=== PATIENT | female | born 1930 | race Caucasian/White ===

== ENCOUNTER 2017-09-12 10:33 | Outpatient (CLI) | payer MEDICARE, OTHER ==
--- NOTE | 2017-09-12 12:33 | RAD ---
TWO VIEWS CHEST: Comparison: 03-26-16 History: Cough for five days. FINDINGS: Two views chest shows a normal sized cardiomediastinal silhouette. Increased interstitial markings ar e present. There is no evidence of consolidation, mass, or pleural effusion. There are multiple remot e left rib fractures. IMPRESSION: No evidence of acute cardiopulmonary disease. POS: [facility]
== END 2017-09-12 10:34 | disposition home or self-care (01) ==
LOC: SCSRAD 10:33
PROVIDERS: ATTEND Nurse Practitioner Family
DX: J40 Bronchitis, not specified as acute or chronic (principal)
CPT/HCPCS: 71046

== ENCOUNTER 2018-04-14 12:19 | Outpatient (CLI) | payer MEDICARE, OTHER ==
[2018-04-14 13:53] LABS: #Eosinphils 0.1 thou/uL (0.0-0.7); #Lymphocytes 1.9 thou/uL (1.20-3.40); #Monocytes 0.7 thou/uL (0.11-0.59); #Neutrophils 3.4 thou/uL (1.40-6.50); %Basophils 0.8 % (0.0-1.0); %Eosinophils 1.9 % (0.0-10.0); %Lymphocytes 30.7 % (21.0-51.0); %Monocytes 10.7 % (0.0-10.0); %Neutrophils 55.9 % (42.0-75.0); Hemoglobin 11.9 g/dL (12.0-16.0); Mean Corpuscular HGB CONC 31.6 g/dL (32.0-36.0); Mean Corpuscular Hemoglobin 25.2 pg (27.0-31.0); Mean Corpuscular Volume 79.7 fL (78.0-98.0); Mean Platelet Volume 9.5 fL (7.4-10.4); Platelet Count 252 thou/uL (130-400); RBC Distribution Width 14.3 % (11.5-14.5); Red Blood Cell (RBC) Count 4.73 mill/uL (4.20-5.40)
--- NOTE | 2018-04-14 14:58 | RAD ---
CHEST TWO VIEWS: CLINICAL HISTORY: Preoperative evaluation. COMPARISON: 09/12/2017 FINDINGS: There is stable prominence of the central pulmonary arteries bilaterally. The lungs are hyperinflate d with interstitial prominence. No new consolidation or effusion. The cardiac silhouette is mildly prominent, stable. Vascular calcification remains. IMPRESSION: 1. Chronic obstructive pulmonary disease. 2. No focal consolidation. POS: [facility]
--- NOTE | 2018-04-14 19:08 | EKG ---
Test Reason : Blood Pressure : / mmHG Vent. Rate : 071 BPM Atrial Rate : 071 BPM P-R Int : 158 ms QRS Dur : 088 ms QT Int : 400 ms P-R-T Axes : 049 -01 071 degrees QTc Int : 434 ms Normal sinus rhythm Possible Anterior infarct , age undetermined Abnormal ECG When compared with ECG of 26-MAR-2016 16:50, No significant change was found Confirmed by James PENA ([id number]) on 04/14/2018 7:07:58 PM Referred By: ELSIE Confirmed By:James PENA
== END 2018-04-14 12:20 | disposition home or self-care (01) ==
LOC: LABBT 12:19
PROVIDERS: ATTEND Specialist
DX: Z01.818 Encounter for other preprocedural examination (principal); K42.9 Umbilical hernia without obstruction or gangrene
CPT/HCPCS: 71046; 85025; 93005; 93010

== ENCOUNTER 2018-04-25 08:35 | Day surgery (SDC) | payer MEDICARE, OTHER ==
[2018-04-14 12:41] VITALS: BMI 30.9
[2018-04-25] MEDS ORDERED: Ketorolac Tromethamine 30 MG/ML VIAL ONE (09:26)
[2018-04-25] MEDS ORDERED: Levofloxacin 500 mg/D5W 100 ml Premix Bag ONE (10:39)
[2018-04-25] MEDS ORDERED: Bupivacaine/Epinephrine 0.25% 30 ML VIAL ONE (11:31)
[2018-04-25] MEDS ORDERED: Fentanyl 100 MCG/2 ML VIAL ONE (11:39)
[2018-04-25] MEDS ORDERED: Glycopyrrolate 0.2 MG/ML 5 ML SYRINGE ONE (12:40)
[2018-04-25] MEDS ORDERED: Ondansetron PF 4 MG/2 ML Vial ONE ×2 (12:40→13:13)
[2018-04-25] MEDS ORDERED: PROPOFOL 200 MG/20 ML VIAL ONE (12:40)
--- NOTE | 2018-04-26 13:34 | OP ---
DATE OF PROCEDURE: 04/25/2018 PREOPERATIVE DIAGNOSIS: Umbilical hernia. POSTOPERATIVE DIAGNOSIS: Umbilical hernia. OPERATION PERFORMED: Repair with a 6.4 cm Ventralex mesh patch. ANESTHESIA: General with laryngeal mask airway. INDICATIONS FOR PROCEDURE: The patient is an 87-year-old white female. She presents with an enlarging and symptomatic umbilical hernia. She is taken to the operative room at this time for repair. DESCRIPTION OF OPERATION: Informed consent was obtained. The patient was taken to the operating room, where general endotracheal anesthesia was obtained with the patient in supine position. The abdomen was prepped with ChloraPrep and draped in sterile fashion. Local anesthetic was infiltrated using 0.25% Marcaine with epinephrine. Infraumbilical curvilinear incision was created and dissection was carried through skin and subcutaneous tissue. Dissection was carried down to the fascia and then around the umbilicus and the hernia. The umbilical skin was dissected off the underlying fascia and hernia sac, and reflected superiorly. The hernia sac was dissected circumferentially. The hernia sac was then entered and excised. The anterior fascia was dissected for about a centimeter circumferentially. The posterior fascia was dissected using digital blunt dissection. I obtained a 6.4 cm Ventralex mesh patch. This was placed in the preperitoneal space. It was pulled snugly against the posterior fascia. The tails of the mesh patch were secured to fascia superiorly and inferiorly using single interrupted sutures of 0 Prolene. The lateral aspects of the defect were closed using single interrupted sutures of 0 Prolene, obtaining bites of the anterior leaflet of the mesh patch. The umbilical skin was then sutured down to the fascia with two interrupted sutures of 3-0 Vicryl. Deep layers of the wound were approximated with 3-0 Monocryl and the skin edges were approximated with 4-0 Monocryl. Dermabond was placed externally. A compression dressing was placed externally using cotton balls and a Tegaderm dressing in the usual fashion. There were no complications. The patient tolerated the procedure well and was taken to the recovery room in stable condition. Job ID: [id number]
== END 2018-04-25 16:00 | disposition home or self-care (01) ==
LOC: SDC 08:35
PROVIDERS: ATTEND Specialist
PROC: 0WUF0JZ Supplement Abdominal Wall with Synthetic Substitute, Open Approach (ICD-10-PCS; principal; 2018-04-25)
DX: K42.9 Umbilical hernia without obstruction or gangrene (principal); M19.90 Unspecified osteoarthritis, unspecified site; M81.0 Age-related osteoporosis without current pathological fracture; K21.9 Gastro-esophageal reflux disease without esophagitis; E03.9 Hypothyroidism, unspecified; E78.5 Hyperlipidemia, unspecified; Z88.0 Allergy status to penicillin; Z88.5 Allergy status to narcotic agent; Z79.82 Long term (current) use of aspirin; Z79.899 Other long term (current) drug therapy
CPT/HCPCS: 96374; J0131; J1885; J1956; J2405; J2704; J3010

== ENCOUNTER 2020-08-22 18:47 | Emergency (ER) | payer MEDICARE, OTHER ==
[2020-08-22 19:28] LABS: #Basophils 0.1 thou/uL (0.0-0.2); #Eosinphils 0.2 thou/uL (0.0-0.7); #Lymphocytes 1.5 thou/uL (1.20-3.40); #Monocytes 0.8 thou/uL (0.11-0.59); #Neutrophils 5.4 thou/uL (1.40-6.50); %Basophils 0.8 % (0.0-1.0); %Lymphocytes 18.9 % (21.0-51.0); %Monocytes 9.6 % (0.0-10.0); %Neutrophils 67.7 % (42.0-75.0); Hemoglobin 10.9 g/dL (12.0-16.0); Mean Corpuscular HGB CONC 31.3 g/dL (32.0-36.0); Mean Corpuscular Hemoglobin 27.9 pg (27.0-31.0); Mean Corpuscular Volume 89.2 fL (78.0-98.0); Mean Platelet Volume 8.8 fL (7.4-10.4); Platelet Count 329 thou/uL (130-400); RBC Distribution Width 12.3 % (11.5-14.5)
[2020-08-22 19:50] LABS: ALT (SGPT) 9 U/L (8-55); AST (SGOT) 17 U/L (5-34); Albumin 3.2 g/dL (3.4-4.8); Alkaline Phosphatase 82 U/L (40-110); Anion Gap 14 mmol/L (10-20); BUN (Urea Nitrogen) 15 mg/dL (9.8-20.1); Bilirubin, Total 0.7 mg/dL (0.2-1.2); Calc. Creatinine Clearance 0 mL/min (70-130); Calcium 8.6 mg/dL (7.8-10.44); Carbon Dioxide 21 mmol/L (23-31); Chloride 104 mmol/L (98-107); Globulin 2.9 g/dL (2.4-3.5); Glucose 135 mg/dL (83-110); Potassium 3.9 mmol/L (3.5-5.1); Protein, Total 6.1 g/dL (5.8-8.1); Sodium 135 mmol/L (136-145)
[2020-08-22] MEDS ORDERED: HYDROcodone/Acetaminophen 10/325 mg Tablet ONE (20:47)
== END 2020-08-22 22:00 ==
LOC: ERS 18:47
DX: M96.89 Other intraoperative and postprocedural complications and disorders of the musculoskeletal system (principal); M25.462 Effusion, left knee; E03.9 Hypothyroidism, unspecified; K21.9 Gastro-esophageal reflux disease without esophagitis; Z79.899 Other long term (current) drug therapy; Z79.82 Long term (current) use of aspirin
CPT/HCPCS: 36415; 71045; 80053; 83605; 85025; 85652; 86140; 87040

== ENCOUNTER 2020-11-10 09:13 | Emergency (ER) | payer MEDICARE, OTHER ==
[2020-11-10 10:13] LABS: #Eosinphils 0.2 thou/uL (0.0-0.7); #Lymphocytes 1.6 thou/uL (1.20-3.40); #Monocytes 0.6 thou/uL (0.11-0.59); #Neutrophils 4.4 thou/uL (1.40-6.50); %Basophils 0.4 % (0.0-1.0); %Eosinophils 3.1 % (0.0-10.0); %Monocytes 8.3 % (0.0-10.0); %Neutrophils 64.2 % (42.0-75.0); Hemoglobin 13.9 g/dL (12.0-16.0); Mean Corpuscular HGB CONC 30.1 g/dL (32.0-36.0); Mean Corpuscular Hemoglobin 26.6 pg (27.0-31.0); Mean Corpuscular Volume 88.2 fL (78.0-98.0); Mean Platelet Volume 8.4 fL (7.4-10.4); Platelet Count 306 thou/uL (130-400); RBC Distribution Width 14.6 % (11.5-14.5); Red Blood Cell (RBC) Count 5.22 mill/uL (4.20-5.40); White Blood Cell (WBC) Count 6.8 thou/uL (4.8-10.8)
[2020-11-10 10:41] LABS: ALT (SGPT) 35 U/L (8-55); AST (SGOT) 56 U/L (5-34); Albumin 3.3 g/dL (3.4-4.8); Alkaline Phosphatase 81 U/L (40-110); Anion Gap 14 mmol/L (10-20); BUN (Urea Nitrogen) 7 mg/dL (9.8-20.1); Bilirubin, Total 0.4 mg/dL (0.2-1.2); Calc. Creatinine Clearance 0 mL/min (70-130); Carbon Dioxide 22 mmol/L (23-31); Chloride 105 mmol/L (98-107); Glucose 100 mg/dL (83-110); Potassium 4.1 mmol/L (3.5-5.1); Protein, Total 6.3 g/dL (5.8-8.1); Sodium 137 mmol/L (136-145)
== END 2020-11-10 13:35 | disposition home or self-care (01) ==
LOC: ERS 09:13
DX: K62.5 Hemorrhage of anus and rectum (principal); E03.9 Hypothyroidism, unspecified; K21.9 Gastro-esophageal reflux disease without esophagitis; I10 Essential (primary) hypertension; Z79.899 Other long term (current) drug therapy
CPT/HCPCS: 36415; 80053; 82274; 85025; 99283